=== PATIENT | female | born 2000 | race Caucasian/White ===

== ENCOUNTER 2020-12-06 16:22 | Emergency (ER) | payer OTHER ==
[~2020-12-06] VITALS: Ht 165.1 cm; Wt 72.6 kg
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
[2020-12-06] MEDS ORDERED: HYDROCODON-ACE1 EA10 PO (19:38)
== END 2020-12-06 19:48 | disposition home or self-care (01) ==
LOC: ED 16:22
DX: O03.9 Complete or unspecified spontaneous abortion without complication (principal); F17.200 Nicotine dependence, unspecified, uncomplicated
CPT/HCPCS: 76801; 76817; 84702; 85025; 99284-25

== ENCOUNTER 2021-12-09 20:13 | Emergency (ER) | payer OTHER ==
[~2021-12-09] VITALS: Ht 165.1 cm; Wt 70.0 kg
[~2021-12-09 20:13] MED LIST: HYDROCODON-ACE1 EA10 PO
[2021-12-09] MEDS ORDERED: PROMETHAZINE HC25 MG PR (22:32)
[2021-12-09] MEDS ORDERED: ONDANSETRON ODT8 MG PO (22:32)
[2021-12-09] MEDS ORDERED: K-TAB10 MEQ PO (22:32)
== END 2021-12-09 23:00 | disposition home or self-care (01) ==
LOC: ED 20:13
DX: R11.15 Cyclical vomiting syndrome unrelated to migraine (principal); E87.6 Hypokalemia; F17.200 Nicotine dependence, unspecified, uncomplicated; Z91.048 Other nonmedicinal substance allergy status; Z20.822 Contact with and (suspected) exposure to COVID-19
CPT/HCPCS: 36415; 80053; 81001; 84703; 85025; 87502; 96374; 99284-25; A9270; J2405; U0003